=== PATIENT | female | born 1940 | race African-American/Black ===

== ENCOUNTER 2018-06-07 16:09 | Inpatient (IN) | payer OTHER ==
[~2018-06-07] VITALS: Ht 163.8 cm; Wt 62.3 kg
[2018-06-07 19:15] LABS: BASOPHIL % 0.4 % (0-2); PLATELET COUNT 198 x10^3mcL (130-400); RED CELL DISTRIBUTION WIDTH 12.9 % (11.5-14.5)
[2018-06-07 19:21] LABS: CALCIUM 8.8 mg/dL (8.5-10.1); CHLORIDE SERUM 101 mmol/L (98-107); CREATININE SERUM 1.2 mg/dL (0.6-1.0); GLUCOSE SERUM 285 mg/dL (74-106); POTASSIUM SERUM 4.3 mmol/L (3.5-5.1); SODIUM SERUM 140 mmol/L (136-145)
[2018-06-07 19:26] LABS: ALBUMIN 3.6 g/dL (3.4-5.0); ALKALINE PHOSPHATASE 132 U/L (46-116); ALT/SGPT 17 U/L (14-59); AST/SGOT 19 U/L (15-37); BILIRUBIN TOTAL 0.77 mg/dL (0.20-1.00); TOTAL PROTEIN, SERUM 8.4 g/dL (6.4-8.2)
[2018-06-07 21:05] LABS: PHOSPHOROUS 3.9 mg/dL (2.5-4.9)
[2018-06-07 21:06] LABS: CHOLESTEROL/HDL RATIO 4.9
[2018-06-07] MEDS ORDERED: PANTOPRAZOLE SO40 M1 PO (21:13)
[2018-06-07] MEDS ORDERED: LOSARTAN POTASS25 M1 PO (21:13)
[2018-06-07] MEDS ORDERED: FUROSEMIDE20 MG PO (21:14)
[2018-06-07] MEDS ORDERED: GABAPENTIN300 M4 PO (21:14)
[2018-06-07] MEDS ORDERED: TOPROL XL25 MG PO (21:14)
[2018-06-07] MEDS ORDERED: LOSARTAN POTASS50 M1 PO (21:14)
[2018-06-07] MEDS ORDERED: ATORVASTATIN CA40 M1 PO (21:15)
[2018-06-07] MEDS ORDERED: LOPERAMIDE HCL2 MG PO (21:15)
[2018-06-07 21:48] VITALS: BP 181/97
[2018-06-07 21:56] VITALS: Ht 163.8 cm; Wt 62.3 kg
[2018-06-08 05:27] VITALS: BP 155/65
[2018-06-08 08:10] LABS: CALCIUM 8.8 mg/dL (8.5-10.1); CARBON DIOXIDE 27.1 mmol/L (21-32); CHLORIDE SERUM 102 mmol/L (98-107); GLUCOSE SERUM 180 mg/dL (74-106); POTASSIUM SERUM 3.6 mmol/L (3.5-5.1); SODIUM SERUM 142 mmol/L (136-145)
[2018-06-08 08:49] LABS: BASOPHIL % 0.8 % (0-2); PLATELET COUNT 131 x10^3mcL (130-400)
[2018-06-08 09:24] VITALS: BP 181/65
[2018-06-08 13:36] VITALS: BP 178/79
[2018-06-08 13:49] LABS: microscopic required? YES; urine erythrocyte 1+ (NEGATIVE)
[2018-06-08 15:25] LABS: AMPHETAMINE QUAL UR NONE DETECTED (See below)
[2018-06-08 16:50] VITALS: BP 95/71
[2018-06-08 20:39] VITALS: BP 128/54
[2018-06-09 05:00] VITALS: BP 159/55
[2018-06-09 06:50] LABS: PLATELET COUNT 145 x10^3mcL (130-400); RED CELL DISTRIBUTION WIDTH 12.6 % (11.5-14.5)
[2018-06-09 06:54] LABS: BASOPHIL % 0 % (0-2)
[2018-06-09 08:21] LABS: CALCIUM 8.8 mg/dL (8.5-10.1); CARBON DIOXIDE 18.5 mmol/L (21-32); CHLORIDE SERUM 102 mmol/L (98-107); CREATININE SERUM 1.3 mg/dL (0.6-1.0); GLUCOSE SERUM 189 mg/dL (74-106); MAGNESIUM 1.9 mg/dL (1.8-2.4); PHOSPHOROUS 4.8 mg/dL (2.5-4.9); POTASSIUM SERUM 3.7 mmol/L (3.5-5.1); SODIUM SERUM 141 mmol/L (136-145)
[2018-06-09 10:05] VITALS: BP 120/48
[2018-06-09 13:10] VITALS: BP 142/77
[2018-06-09 17:50] VITALS: BP 147/65
[2018-06-09 21:23] VITALS: BP 134/74
[2018-06-10 05:19] VITALS: BP 109/50
[2018-06-10 10:05] VITALS: BP 116/54
[2018-06-10] MEDS ORDERED: ARI5 PO (13:01)
[2018-06-10 14:27] VITALS: BP 116/54
[2018-06-10 15:13] VITALS: BP 114/53
[2018-06-10 17:32] VITALS: BP 117/51
== END 2018-06-10 18:40 | disposition home or self-care (01) | DRG 391 ==
LOC: ED 16:09 → DU 19:58
PROVIDERS: Emergency Medicine; Internal Medicine Gastroenterology; ADMIT Internal Medicine
PROC: 0DB68ZX Excision of Stomach, Via Natural or Artificial Opening Endoscopic, Diagnostic (ICD-10-PCS; principal; 2018-06-09 08:30)
PROC: 0D5F8ZZ Destruction of Right Large Intestine, Via Natural or Artificial Opening Endoscopic (ICD-10-PCS; 2018-06-09 08:30)
DX: K21.0 Gastro-esophageal reflux disease with esophagitis (principal); N17.0 Acute kidney failure with tubular necrosis; D68.69 Other thrombophilia; I11.0 Hypertensive heart disease with heart failure; I50.9 Heart failure, unspecified; K44.9 Diaphragmatic hernia without obstruction or gangrene; Q27.33 Arteriovenous malformation of digestive system vessel; G90.9 Disorder of the autonomic nervous system, unspecified; M19.90 Unspecified osteoarthritis, unspecified site; M06.9 Rheumatoid arthritis, unspecified; E11.42 Type 2 diabetes mellitus with diabetic polyneuropathy; E11.65 Type 2 diabetes mellitus with hyperglycemia; E78.5 Hyperlipidemia, unspecified; G30.9 Alzheimer's disease, unspecified; F02.80 Dementia in other diseases classified elsewhere, unspecified severity, without behavioral disturbance, psychotic disturbance, mood disturbance, and anxiety; I25.2 Old myocardial infarction; Z95.0 Presence of cardiac pacemaker; Z86.73 Personal history of transient ischemic attack (TIA), and cerebral infarction without residual deficits; Z91.011 Allergy to milk products; Z91.018 Allergy to other foods; Z68.23 Body mass index [BMI] 23.0-23.9, adult
CPT/HCPCS: 43235; 45378; 82962; 83880; 90732; C9113; J1200; J1610; J1815; J2250; J2310; J2405; J2550; J2765; J3010; J3490; J7030; Q0092; Q9967

== ENCOUNTER 2018-06-18 17:37 | Emergency (ER) | payer OTHER ==
[~2018-06-18] VITALS: Ht 162.6 cm; Wt 61.7 kg
[~2018-06-18 17:37] MED LIST: ARI5 PO; ATORVASTATIN CA40 M1 PO; FUROSEMIDE20 MG PO; GABAPENTIN300 M4 PO; LOPERAMIDE HCL2 MG PO; LOSARTAN POTASS25 M1 PO; LOSARTAN POTASS50 M1 PO; PANTOPRAZOLE SO40 M1 PO; TOPROL XL25 MG PO
[2018-06-18 17:40] VITALS: Ht 162.6 cm; Wt 61.7 kg
[2018-06-18 18:34] LABS: CALCIUM 8.7 mg/dL (8.5-10.1); CARBON DIOXIDE 29.4 mmol/L (21-32); CHLORIDE SERUM 105 mmol/L (98-107); CREATININE SERUM 1.4 mg/dL (0.6-1.0); GLUCOSE SERUM 116 mg/dL (74-106); POTASSIUM SERUM 3.7 mmol/L (3.5-5.1); SODIUM SERUM 143 mmol/L (136-145)
[2018-06-18 19:21] VITALS: BP 162/86
== END 2018-06-18 19:59 | disposition home or self-care (01) ==
LOC: ED 17:37
PROVIDERS: Emergency Medicine
DX: E11.649 Type 2 diabetes mellitus with hypoglycemia without coma (principal); I50.9 Heart failure, unspecified; I11.0 Hypertensive heart disease with heart failure; Z95.0 Presence of cardiac pacemaker; Z91.011 Allergy to milk products; Z91.013 Allergy to seafood
CPT/HCPCS: 36415; 82962

== ENCOUNTER 2018-07-19 11:46 | Inpatient (IN) | payer OTHER, MEDICAID ==
[~2018-07-19] VITALS: Ht 163.8 cm; Wt 59.7 kg
--- NOTE | 2018-07-19 12:04 | NUR ---
Patient received AAOX4 via ALS from [facility]. Per report, patient was walking in the store, felt dizzy and started to sit herself slowly on the ground. PAtient denies any pain upon arrival. [id number] upon arrival. EKG in progress. Patient changed in a gown and placed on continous cardiac monitoring.
[2018-07-19 12:16] LABS: BASOPHIL % 0.4 % (0-2); PLATELET COUNT 218 x10^3mcL (130-400); RED CELL DISTRIBUTION WIDTH 13.6 % (11.5-14.5)
[2018-07-19 12:25] LABS: CALCIUM 8.6 mg/dL (8.5-10.1); CARBON DIOXIDE 27.8 mmol/L (21-32); CHLORIDE SERUM 100 mmol/L (98-107); CREATININE SERUM 1.5 mg/dL (0.6-1.0); GLUCOSE SERUM 190 mg/dL (74-106); POTASSIUM SERUM 3.6 mmol/L (3.5-5.1); SODIUM SERUM 139 mmol/L (136-145)
[2018-07-19 12:30] LABS: ALBUMIN 3.8 g/dL (3.4-5.0); ALKALINE PHOSPHATASE 115 U/L (46-116); ALT/SGPT 25 U/L (14-59); AST/SGOT 22 U/L (15-37); BILIRUBIN TOTAL 0.85 mg/dL (0.20-1.00); CHOLESTEROL 187 mg/dL (<200); LIPASE 38 IU/L (73-393); TRIGLYCERIDES 169 mg/dL (<150)
[2018-07-19 12:31] LABS: HDL CHOLESTEROL 62 mg/dL (40-60); TOTAL PROTEIN, SERUM 9.2 g/dL (6.4-8.2)
--- NOTE | 2018-07-19 12:35 | NUR ---
PORTABLE X-RAY AT THE BEDSIDE.
[2018-07-19 12:36] LABS: FREE T4 1.16 ng/dL (0.76-1.46); FREE THYROXINE INDEX 3.3 ug/dL (1.4-4.5); T4(THYROXINE) 8.9 ug/dL (4.7-13.3)
[2018-07-19 12:38] LABS: T3 TOTAL 1.06 ng/mL
--- NOTE | 2018-07-19 12:46 | NUR ---
Patient remains AAOx4. Patient has been updated regarding her plan of care. LABS and X-ray pending. IV NS bolus continous at this time. Warm blankets provided to the patient. Cardiac monitoring continous.
--- NOTE | 2018-07-19 13:10 | NUR ---
DR. ULRICH AT THE BEDSIDE FOR PATIENT RE-EVALUATION.
--- NOTE | 2018-07-19 14:08 | NUR ---
PATIENT ASSISTED WITH BEDPAN. UA SPECIMEN OBTAINED AND SENT TO LAB. PATIENT HAS BEEN AWARE OF HER PENDING ADMISSION. PENDING FOR TELE BED PLACEMENT. PATIENT REMAINS PAIN FREE.
[2018-07-19 14:13] LABS: microscopic required? NO
[2018-07-19 14:24] LABS: urine erythrocyte NEGATIVE (NEGATIVE)
[2018-07-19 14:28] LABS: MAGNESIUM 1.3 mg/dL (1.8-2.4); PHOSPHOROUS 4.1 mg/dL (2.5-4.9)
--- NOTE | 2018-07-19 14:47 | NUR ---
PATIENT TO CT FOR HEAD CT W/O CONTRAST. WANDA BERRIOS AT THE BEDSIDE. ATTEMPTED TO ESTABLISH AN IV WITH NO SUCCESS. DR. ULRICH, ER MD, HAS BEEN NOTIFIED. "OK" TO SEND THE PT TO FLOOR W/O IV. ADMITTING MD WILL BE NOTIFIED.
--- NOTE | 2018-07-19 15:20 | NUR ---
RECEIVED PT FROM ED VIA [facility], CAME IN DUE TO DIZZINESS AND NEAR SYNCOPE. AAOX4. C/O DIZZINESS WHEN STANDING UP. ABLE TO FOLLOW COMMANDS. NO FACIAL DROOP/ARM DRIFT. NO SOB NOTED, LUNG SOUNDS CTA. DENIES CHEST PAIN/PRESSURE, 100% PACED. DENIES ABDOMINAL DISCOMFORT. BOWEL SOUNDS ACTIVE. NEW IV SITE WAS INSERTED ON THE LEFT HAND, GAUGE 24, W/ GOOD BLOOD RETURN. SIDE RAILS UPX2. CALL LIGHT ON REACH. ENDORSED TO PRIMARY NURSE ELI FOR CONTINUITY OF CARE
[2018-07-19 15:50] VITALS: BP 132/79
[2018-07-19 15:56] VITALS: Ht 163.8 cm; Wt 59.7 kg
[2018-07-19 17:07] VITALS: BP 138/73
--- NOTE | 2018-07-19 18:14 | NUR ---
PT SITTING UP IN BED EATING DINNER. NO ACUTE DISTRESS. DENIES DIZZINESS AT THIS TIME. AAOX4. RESP EVEN AND UNLABORED ON RA. IVF INFUSING, NO REDNESS OR SWELLING. FALL PRECAUTIONS IN PLACE. BED IN LOW POSITION, CALL LIGHT WITHIN REACH. WILL ENDORSE TO ONCOMING SHIFT.
--- NOTE | 2018-07-19 19:15 | NUR ---
RECEIVED PT FROM PREVIOUS SHIFT NURSE. PT AOX4, C/O DIZZINESS UPON STANDING. TELE #15, 100% PACED. DENIES CP/PRESSURE. PULSES PALPABLE, NO EDEMA NOTED. LUNG SOUNDS CLEAR, ON RA. DENIES SOB/DIFFICULTY BREATHING. BOWEL SOUNDS ACTIVE. VOIDS FREELY. GEN WEAKNESS. AMBULATORY WITH WALKER, WALKER AT BEDSIDE. SKIN INTACT. IV TO L. HAND, INTACT AND PATENT. BED IN LOWEST POSITION. CALL LIGHT WITHIN REACH. WILL CONTINUE TO MONITOR.
[2018-07-19 22:08] VITALS: BP 104/50
--- NOTE | 2018-07-20 03:17 | NUR ---
PT RESTING IN BED. RR EVEN AND UNLABORED. NO ACUTE DISTRESS NOTED. CALL LIGHT WITHIN REACH. BED IN LOWEST POSITION. WILL CONTINUE TO MONITOR.
[2018-07-20 05:38] VITALS: BP 126/54
[2018-07-20 06:16] LABS: BASOPHIL % 0.5 % (0-2); PLATELET COUNT 188 x10^3mcL (130-400); RED CELL DISTRIBUTION WIDTH 13.5 % (11.5-14.5)
[2018-07-20 06:37] LABS: CALCIUM 8.1 mg/dL (8.5-10.1); CARBON DIOXIDE 28.4 mmol/L (21-32); CHLORIDE SERUM 106 mmol/L (98-107); CREATININE SERUM 1.2 mg/dL (0.6-1.0); GLUCOSE SERUM 96 mg/dL (74-106); MAGNESIUM 1.9 mg/dL (1.8-2.4); POTASSIUM SERUM 3.2 mmol/L (3.5-5.1); SODIUM SERUM 143 mmol/L (136-145)
--- NOTE | 2018-07-20 07:22 | NUR ---
REPORT TAKEN FROM ACCOUNT DEVELOPMENT SPECIALIST NURSE AT THE BEDSIDE, PT RESTING AT THIS TIME, CHEST RISE AND FALL OBSERVED, WILL COMPLETE ASSESSEMENT IN CHART.
[2018-07-20 09:00] VITALS: BP 140/70
--- NOTE | 2018-07-20 10:19 | NUR ---
PT RESTING COMFORTABLY AT THIS TIME, MET WITH DOCTORS DURING ROUNDS, AWARE OF PLAN OF CARE, WILL CONTINUE TO MONITOR.
--- NOTE | 2018-07-20 11:57 | NUR ---
PROVIDER PAGED TO MAKE AWARE OF K+ LEVEL OF 3.2, RESPONSE PENDING, PT IS ASYMPTOMATIC AT THIS TIME.
[2018-07-20 12:47] VITALS: BP 140/64
[2018-07-20 17:00] VITALS: BP 135/58
--- NOTE | 2018-07-20 18:22 | NUR ---
PT TOLERATED TREATMENT WELL DURING SHIFT, IN NAD AT THIS TIME, A/O X 3 AT THIS TIME, DENIED DIZZINESS DURING AMBULATION DURING SHIFT. WILL REPORT TO BOATSWAINS MATE NURSE, AND ENDORSE CARE AT SHIFT CHANGE.
--- NOTE | 2018-07-20 19:25 | NUR ---
RECEIVED PT FROM PREVIOUS SHIFT NURSE. PT AOX4, FORGETFUL/CONFUSED. TELE #15. 100% PACED. DENIES CP/PRESSURE. LUNG SOUNDS CLEAR, ON RA. DENIES SOB/DIFFICULTY BREATHING. IV TO L. HAND, INTACT AND PATENT. BED IN LOWEST POSITION. CALL LIGHT WITHIN REACH. WILL CONTINUE TO MONITOR.
[2018-07-20 20:03] VITALS: BP 133/55
--- NOTE | 2018-07-21 02:14 | NUR ---
PT RESTING IN BED. RR EVEN AND UNLABORED. NO ACUTE DISTRESS NOTED. CARE ENDORSED TO WANDA PETERSON.
--- NOTE | 2018-07-21 02:40 | NUR ---
PAGED DR. CLARKE REGARDING K+ 3.2.
[2018-07-21 05:25] VITALS: BP 134/57
--- NOTE | 2018-07-21 06:10 | NUR ---
PT RECONNECTED TO IVF. DENIES PAIN. NO S/S ACUTE DISTRESS. DENIES PAIN. ALL NEEDS MET AND ATTENDED TO. NO SIGNIFICANT EVENTS. IV SITE CDI, FLUSHES WELL, NO ERYTHEMA OR SWELLING. CALL LIGHT WITHIN REACH. WILL ENDORSE TO ONCOMING SHIFT.
[2018-07-21 06:13] LABS: BASOPHIL % 0.4 % (0-2); PLATELET COUNT 184 x10^3mcL (130-400); RED CELL DISTRIBUTION WIDTH 12.7 % (11.5-14.5)
[2018-07-21 06:39] LABS: CALCIUM 7.9 mg/dL (8.5-10.1); CARBON DIOXIDE 27.6 mmol/L (21-32); CHLORIDE SERUM 106 mmol/L (98-107); CREATININE SERUM 0.8 mg/dL (0.6-1.0); GLUCOSE SERUM 104 mg/dL (74-106); POTASSIUM SERUM 3.5 mmol/L (3.5-5.1); SODIUM SERUM 143 mmol/L (136-145)
--- NOTE | 2018-07-21 07:30 | NUR ---
THE PATIENT AWAKE AND ORIENTED TO PERSON, PLACE AND AT THIS TIME. HOWEVER, PATIENT WITH HX OF DEMENTIA. PATIENT DENIED SHORTNESS OF BREATH, NAUSEA/VOMITING, DIZZINESS OR PAIN AT THIS TIME. TELE # 15 READS PACED. PACEMAKER TO LEFT UPPER CHEST. NS AT 50 CC/HR VIA IV SITE TO LEFT HAND. CALL LIGHT WITHIN REACH. SIDE RAILS UP X3. BED WAS AT LOWEST POSITION, AND ALARM WAS ON. WALKER AT BEDSIDE.
[2018-07-21 09:00] VITALS: BP 134/60
[2018-07-21 12:00] VITALS: BP 127/57
[2018-07-21 17:00] VITALS: BP 132/46
--- NOTE | 2018-07-21 18:52 | NUR ---
THE PATIENT WAS RESTING IN BED WITHOUT DISTRESS NOTED. THE PATIENT GOT OUT OF BED AND USED BRP WITH A WALKER. CALL LIGHT WITHIN REACH. SIDE RAILS UP X3. BED WAS AT LOWEST POSITION.
--- NOTE | 2018-07-21 19:30 | NUR ---
RECIEVED PATIENT AT START OF SHIFT AWAKE AND ORIENTED TO TIME PERSON AND PLACE. NO COMPLAINT OF PAIN AND NO SOB ON RA. ON TELE #15, 100% PACED. PULSES ARE MODERATE, NO EDEMA NOTED. PATIENT REPORTED THAT TODAY SHE HAD BLOODY DRAINAGE FROM HER VAGINA. SHE REPORTS SHE HAS BEEN HAVING SPOTTY BLEEDING FOR THE PAST 20 YEARS THAT COMES AND GOES. CURRENT PERINEAL PAD IN PLACE IS DRY WITH NO BLOOD. WILL CONTINUE TO CHECK PAD AND NOTIFY MD. IV IS INTACT, NO ERYTHEMA OR INFILTRATION NOTED. BED ALARM ON, PATIENT AMBULATES WITH WALKER TO BATHROOM. BED LOCKED AND IN LOWEST POSITION, CALL LIGHT AND BEDSIDE TABLE WITHIN REACH. NON-SLIP SOCKS ON. WILL CONINTUE TO MONITOR.
[2018-07-21 20:51] VITALS: BP 120/60
[2018-07-22 05:23] VITALS: BP 122/50
[2018-07-22 06:42] LABS: CALCIUM 7.7 mg/dL (8.5-10.1); CARBON DIOXIDE 30.2 mmol/L (21-32); CHLORIDE SERUM 107 mmol/L (98-107); CREATININE SERUM 0.8 mg/dL (0.6-1.0); GLUCOSE SERUM 108 mg/dL (74-106); POTASSIUM SERUM 3.6 mmol/L (3.5-5.1); SODIUM SERUM 142 mmol/L (136-145)
--- NOTE | 2018-07-22 06:50 | NUR ---
NO ACUTE EVENTS OVERNIGHT. PATIENT REPORTED SLEEPING WELL THROUGHOUT SHIFT. DENIES PAIN. NICKY PLAD IS CLEAN, NO BLOOD. PELVIC ULTRASOUND SCHEDULED TODAY TO INVESTIGATE BLEEDING FROM DAYSHIFT YESTERDAY. WILL ENDORSE CARE TO MORNING NURSE.
[2018-07-22 06:51] LABS: BASOPHIL % 0.4 % (0-2); PLATELET COUNT 176 x10^3mcL (130-400); RED CELL DISTRIBUTION WIDTH 13.2 % (11.5-14.5)
[2018-07-22 09:00] VITALS: BP 152/60
[2018-07-22 13:39] VITALS: BP 122/50
[2018-07-22 14:00] VITALS: BP 141/62
[2018-07-22] MEDS ORDERED: GLU5 PO (14:31)
== END 2018-07-22 15:59 | disposition home or self-care (01) | DRG 640 ==
LOC: ED 11:46 → DU 13:49
PROVIDERS: Specialist; ADMIT Family Medicine
DX: E86.0 Dehydration (principal); N17.0 Acute kidney failure with tubular necrosis; I95.1 Orthostatic hypotension; E11.65 Type 2 diabetes mellitus with hyperglycemia; I11.0 Hypertensive heart disease with heart failure; I50.9 Heart failure, unspecified; F03.90 Unspecified dementia, unspecified severity, without behavioral disturbance, psychotic disturbance, mood disturbance, and anxiety; M06.9 Rheumatoid arthritis, unspecified; M19.90 Unspecified osteoarthritis, unspecified site; E83.42 Hypomagnesemia; E78.5 Hyperlipidemia, unspecified; I25.2 Old myocardial infarction; Z95.0 Presence of cardiac pacemaker; Z86.73 Personal history of transient ischemic attack (TIA), and cerebral infarction without residual deficits; Z68.22 Body mass index [BMI] 22.0-22.9, adult
CPT/HCPCS: 82962; 83880; 84439; J3475; J7030; Q0092

== ENCOUNTER 2018-12-14 12:17 | Emergency (ER) | payer OTHER ==
[~2018-12-14] VITALS: Ht 162.6 cm; Wt 56.7 kg
[~2018-12-14 12:17] MED LIST changes: +GLU5 PO
[2018-12-14 12:49] VITALS: Ht 162.6 cm; Wt 56.7 kg
[2018-12-14 14:59] LABS: CALCIUM 8.4 mg/dL (8.5-10.1); CARBON DIOXIDE 25.7 mmol/L (21-32); CHLORIDE SERUM 106 mmol/L (98-107); GLUCOSE SERUM 251 mg/dL (74-106); POTASSIUM SERUM 4.2 mmol/L (3.5-5.1); SODIUM SERUM 141 mmol/L (136-145)
[2018-12-14 15:07] LABS: ALBUMIN 3.6 g/dL (3.4-5.0); ALKALINE PHOSPHATASE 100 U/L (46-116); ALT/SGPT 14 U/L (14-59); AST/SGOT 16 U/L (15-37); BILIRUBIN TOTAL 0.5 mg/dL (0.20-1.00); TOTAL PROTEIN, SERUM 7.9 g/dL (6.4-8.2)
[2018-12-14 15:08] LABS: BASOPHIL % 0.4 % (0-2); PLATELET COUNT 180 x10^3mcL (130-400); RED CELL DISTRIBUTION WIDTH 13.5 % (11.5-14.5)
[2018-12-14 15:53] LABS: UA SPECIFIC GRAVITY 1.025 (1.005-1.035); microscopic required? YES; urine erythrocyte NEGATIVE (NEGATIVE)
[2018-12-14 17:12] VITALS: BP 145/87
== END 2018-12-14 17:12 | disposition home or self-care (01) ==
LOC: ED 12:17
PROVIDERS: Emergency Medicine
DX: R07.89 Other chest pain (principal); R00.2 Palpitations; R55 Syncope and collapse; E11.22 Type 2 diabetes mellitus with diabetic chronic kidney disease; N18.9 Chronic kidney disease, unspecified; I50.9 Heart failure, unspecified; Z91.013 Allergy to seafood; Z91.011 Allergy to milk products; Z98.890 Other specified postprocedural states
CPT/HCPCS: 36415; Q0092

== ENCOUNTER 2019-01-05 17:57 | Inpatient (IN) | payer OTHER ==
[~2019-01-05] VITALS: Ht 162.6 cm; Wt 57.2 kg
[2019-01-05 18:11] VITALS: Ht 162.6 cm; Wt 57.2 kg
--- NOTE | 2019-01-05 18:17 | NUR ---
PT TO ROOM 11. VIA WHEECHAIR.
--- NOTE | 2019-01-05 18:51 | NUR ---
DR QUIGLEY AT BEDSIDE FOR MSE.
--- NOTE | 2019-01-05 19:08 | NUR ---
PT MEDICATED PER MD ORDERS, PT EDUCATED ON MEDICATION PRIOR TO ADMINISTRATION. PT DENIES ALLERGIES TO MEDICATION, FAMILY AT BEDSIDE.
--- NOTE | 2019-01-05 19:17 | NUR ---
REPORT GIVEN TO DE MUÑOZ TO ASSUME CARE OF PT.
--- NOTE | 2019-01-05 19:28 | NUR ---
PT RESTING IN BED ATTEMPTING TO USE BEDPAN.
[2019-01-05 19:40] LABS: BASOPHIL % 0.3 % (0-2); PLATELET COUNT 192 x10^3mcL (130-400); RED CELL DISTRIBUTION WIDTH 13.2 % (11.5-14.5)
[2019-01-05 19:49] LABS: CALCIUM 8.4 mg/dL (8.5-10.1); CHLORIDE SERUM 102 mmol/L (98-107); CREATININE SERUM 1.1 mg/dL (0.6-1.0); GLUCOSE SERUM 315 mg/dL (74-106); POTASSIUM SERUM 4.3 mmol/L (3.5-5.1); SODIUM SERUM 138 mmol/L (136-145)
[2019-01-05 19:55] LABS: ALBUMIN 3.5 g/dL (3.4-5.0); ALKALINE PHOSPHATASE 95 U/L (46-116); ALT/SGPT 16 U/L (14-59); AST/SGOT 15 U/L (15-37); BILIRUBIN TOTAL 0.3 mg/dL (0.20-1.00); LIPASE 66 IU/L (73-393); TOTAL PROTEIN, SERUM 7.2 g/dL (6.4-8.2)
--- NOTE | 2019-01-05 20:45 | NUR ---
PT OFF OF UNIT TO RADIOLOGY.
--- NOTE | 2019-01-05 21:30 | NUR ---
PT RESTING IN BED WITH NO SIGNS OF DISTRESS AT THIS TIME.
[2019-01-05 21:47] LABS: AMPHETAMINE QUAL UR NONE DETECTED (See below)
--- NOTE | 2019-01-05 22:06 | NUR ---
REPORT GIVEN TO OWEN MUÑOZ.
--- NOTE | 2019-01-05 22:20 | NUR ---
RECEIVED PT VIA [facility] FROM E/D, ACCOMPANIED BY RN AND TRANSPORTER. PT A/A/O X 4, CALM, COOPERATIVE; EPISODES OF FORGETFULNESS; C/O INTERMITTENT DULL H/A 3/10, RELIEVED BY PAIN MEDICATIONS. ON TELE # 20, HR 69, 100% PACED, DENIES CHEST PAIN OR DISCOMFORT AT THIS TIME; HAS 10-YR-OLD PM OF UNKNOWN BRAND/MODEL W/C PT STATES NEEDING A CHANGE OF BATTERY OR DUE FOR CHANGING TO A NEWER MODEL; +DIZZINES. LUNGS DIM BILATERALLY, CHEST RISING EVENLY, R/A, 97%, NO ACUTE RESPIRATORY DISTRESS NOTED. ABD SOFT, FLAT, NON-TENDER, HYPOACTIVE BOWEL SOUNDS X 4 QUADS, LAST BM 01/05/19, FORMED; PT IS EDENTULOUS. VOIDS FREELY, DENIES DYSURIA, STATES SHE HAS EPISODES OF VAGINAL BLEEDING. GENERALIZED WEAKNESS, USES W/C & CANE @ HOME, FALL RISK PROTOCOL IN PLACE. IV SITE LAC 20G, CDI. ORIENTED PT TO ROOM, BED CONTROLS, CALL LIGHT SYSTEM. SIDE RAILS UP X 2, BED IN LOW POSITION. WILL ENDORSE TO WANDA WEAVER.
[2019-01-06 00:02] VITALS: BP 157/61
--- NOTE | 2019-01-06 05:25 | NUR ---
PT APPEARS TO BE SLEEPING COMFORTABLY. SHE IS EASILY AROUSABLE AND REMAINS ORIENTED X4. SHE HAS NO C/O HEADACHE AND DIZZINESS AT THIS TIME. NO EPISODE OF N/V. SHE USES THE BEDPAN. NO BM NOTED. IVF NS INFUSING WELL AT 100 CC/HR VIA LTAC.
[2019-01-06 06:10] VITALS: BP 150/59
--- NOTE | 2019-01-06 08:00 | NUR ---
SHIFT ASSESSMENT DONE. PATIENT ALERT/ORIENTED TO PERSON AND PLACE, CONFUSED WITH DATE AND TIME. FORGETFULNESS. TELE#20, 100% PACED. HR = 74; DENIED CHEST PAIN. NO RESP DISTRESS ON RA. DENIED PAIN NOW. FINISHED 100% OF BREAKFAST. NO N/V. VOID FREELY, DIENIED DYSURIA. IVF OF NS 100CC/HR. IV SITE TO LAC INTACT. GENERAL WEAKNESS. USE CANE AND WALKER AT HOME. NEED ASSIST FOR BRP. WALKER AT BED SIDE. CALL LIGHT IN REACH.
[2019-01-06 09:08] VITALS: BP 140/57
--- NOTE | 2019-01-06 09:45 | NUR ---
WALKED WITH PHYSICAL THERAPIST IN [address].
[2019-01-06 10:43] LABS: microscopic required? NO
[2019-01-06 10:53] LABS: urine erythrocyte NEGATIVE (NEGATIVE)
[2019-01-06 10:59] LABS: BASOPHIL % 0.6 % (0-2); PLATELET COUNT 201 x10^3mcL (130-400); RED CELL DISTRIBUTION WIDTH 13.5 % (11.5-14.5)
[2019-01-06 11:09] LABS: CARBON DIOXIDE 32.4 mmol/L (21-32); CHLORIDE SERUM 105 mmol/L (98-107); GLUCOSE SERUM 148 mg/dL (74-106); PHOSPHOROUS 4.3 mg/dL (2.5-4.9); POTASSIUM SERUM 3.8 mmol/L (3.5-5.1); SODIUM SERUM 141 mmol/L (136-145)
[2019-01-06 11:17] LABS: MAGNESIUM 1.8 mg/dL (1.8-2.4)
[2019-01-06 12:30] VITALS: BP 155/53
--- NOTE | 2019-01-06 15:51 | NUR ---
DR. MONSALVE CAME TO SEE PATIENT. NEW ORDER WRITTEN.
[2019-01-06 16:45] VITALS: BP 122/57
--- NOTE | 2019-01-06 18:33 | NUR ---
CONDITION STABLE. BRP W/ ASSIST X2. NO BM THIS SHIFT. ORDER OF PACEMAKER INTERROGATION RECEIVED. ENDORSED CARE TO NOC NURSE.
--- NOTE | 2019-01-06 19:20 | NUR ---
RECEIVED PT IN BED AWAKE AND TALKING TO FAMILY MEMBERS AT BEDSIDE. SHE IS ORIENTED X3. NO SOB ON ROOM AIR. PT DENIED HAVING DIZZINESS AT THIS TIME. W/ IVF NS AT 100 CC/HR VIA LTAC. CALL LIGHT W/IN REACH.
[2019-01-06] MEDS ORDERED: ASPIR 8181 MG PO (19:27)
[2019-01-06] MEDS ORDERED: SULFASALAZINE500 M1 PO (19:28)
[2019-01-06] MEDS ORDERED: OYSCO 500500 M1 PO (19:29)
[2019-01-06] MEDS ORDERED: NOVI SQ (19:31)
[2019-01-06 22:06] VITALS: BP 137/64
--- NOTE | 2019-01-06 22:45 | NUR ---
CALLED [employer] FOR PACEMAKER INTERROGATION AND SAID SOMEBODY WILL COME TOMORROW MORNING AROUND 0600.
--- NOTE | 2019-01-06 23:24 | NUR ---
PT APPEARS TO BE SLEEPING COMFORTABLY. RESP. EVEN AND UNLABORED.
--- NOTE | 2019-01-07 05:34 | NUR ---
PT SLEPT THROUGH THE NIGHT. SHE IS AWAKE, ALERT AND ORIENTED X3. PT FORGETFUL AT TIMES. SHE HAD NO C/O DIZZINESS. SHE HAD NO C/O PAIN. ALL NEEDS ATTENDED TO. SAFETY MEASURES MAINTAINED.
[2019-01-07 05:54] VITALS: BP 111/68
[2019-01-07 06:44] LABS: BASOPHIL % 0.4 % (0-2); PLATELET COUNT 170 x10^3mcL (130-400); RED CELL DISTRIBUTION WIDTH 13.6 % (11.5-14.5)
[2019-01-07 07:18] LABS: CALCIUM 7.9 mg/dL (8.5-10.1); CARBON DIOXIDE 28.4 mmol/L (21-32); CHLORIDE SERUM 106 mmol/L (98-107); GLUCOSE SERUM 200 mg/dL (74-106); MAGNESIUM 1.6 mg/dL (1.8-2.4); PHOSPHOROUS 4.4 mg/dL (2.5-4.9); SODIUM SERUM 143 mmol/L (136-145)
--- NOTE | 2019-01-07 08:19 | NUR ---
RECEIVED PATIENT FROM WANDA WEAVER. PATIENT SEEN SEATED UP IN BED, EATING AND TOLERATING BREAKFAST. ALSO SEEN AMBULATING W WALKER TO BR. NO COMPLAINTS AT THIS TIME. NETWORK SERVICES PROJECT MANAGER MEAGAN RENEE TO SPEAK WITH PATIENT, STATES WE WILL WAIT FOR PATIENT TO HAVE PACEMAKER INTERROGATED WELL EVAL FROM DR MONSALVE CARDIOLOGY. PATIENT VERBALIZES UNDERSTANDING AND AGREES. CALL LIGHT IN REACH AT THIS TIME.
--- NOTE | 2019-01-07 08:30 | NUR ---
[employer] CALLED AND SPOKE WITH ENGINEER [employer] TO SEND OUT FOR PACEMAKER INTERROGATION. WILL AWAIT FOR PACEMAKER ENGINEER [employer] TO ARRIVE.
[2019-01-07 09:19] VITALS: BP 138/79
--- NOTE | 2019-01-07 10:44 | NUR ---
[facility] [employer] REP VALDEZ IN TO INTERROGATE PACEMAKER. REPORT PRINTED AND PLACED IN CHART FOR DR GRICEL DANIELS. INFORMED SAS DEVELOPER ANALYST MEAGAN AND MADE AWARE.
[2019-01-07 13:16] VITALS: BP 166/47
--- NOTE | 2019-01-07 15:45 | NUR ---
DR MONSALVE SEEN AT NURSES STATION AND SEEN EVALUATING PATIENT CHART AND PACEMAKER REPORT. ASKED PATIENT ABOUT WHAT DR MONSALVE SAID AND PATIENT STATED THAT HE HAD NOT COME IN TO SPEAK TO HER. NO COMPLAINTS AT THIS TIME, WILL LOOK FOR PROGRESS NOTE FROM DR MONSALVE. CALL LIGHT IN REACH.
[2019-01-07 16:56] VITALS: BP 130/61
--- NOTE | 2019-01-07 17:11 | NUR ---
PROGRESS NOTE FROM DR MONSALVE IN SYSTEM. INFORMED PATIENT AND REINFORCED TO PATIENT. NO COMPLAINTS AT THIS TIME. WILL CONTINUE TO MONITOR.
--- NOTE | 2019-01-07 18:22 | NUR ---
PATIENT IN BED, TOLERATING DINNER TRAY. NO COMPLAINTS AT THIS TIME. WILL ENDORSE TO ONCOMING NURSE ABOUT PLAN OF CARE. CALL LIGHT IN REACH.
--- NOTE | 2019-01-07 19:35 | NUR ---
RECEIVED REPORT FROM AM NURSE. PT LAYING DOWN IN BED. ASSISTED PT TO RESTROOM. PT AAOX4, ABLE TO MAKE NEEDS KNOWN. DENIES DUMONT/DIZZINESS. SPEECH CLEAR. NO FACIAL DROOP NOTED. ON TELE#20 100%PACED. DENIES CP/PRESSURE AT THIS TIME. PALPABLE PULSES TO ALL EXTREMETIES. NO EDEMA NOTED. LUNG SOUNDS DIMINISHED. BREATHING EVEN AND UNLABORED ON RA. NO ACUTE DISTRESS NOTED. ABD SOFT AND NONDISTENDE. ACTIVE BS X4 QUAD. DENIES N/V/D. VOIDS FREELY, BRP. AMBULATORY WITH WALKER. IV TO LAC RUNNING NS AT 100ML/HR. SITE WNL. BED AT LOWEST SETTING. SIDE RAILS X4 QUAD. CALL LIGHT WITHING REACH. WILL CONTINUE TO MONITOR.
[2019-01-07 20:55] VITALS: BP 131/50
--- NOTE | 2019-01-08 00:06 | NUR ---
PT LAYING DOWN IN BED WITH EYES CLOSED, BREATHING EVEN AND UNLABORED ON RA. NO ACUTE DISTRESS NOTED. NS INFUSING TO LAC AT 100ML/HR. BED AT LOWEST SETTING. SIDE RAILS X2 UP. CALL LIGHT WITHING REACH. WILL CONTINUE TO MONITOR.
[2019-01-08 05:45] VITALS: BP 157/63
--- NOTE | 2019-01-08 06:09 | NUR ---
PT SLEPT AT INTERVALS THROUGHOUT THE NIGHT, BREATHING EVEN AND UNLABORED ON RA. NO SIGNIFICANT CHANGES DURING THE SHIFT. ALL NEEDS ASSESSED AND ATTENDED TO. NO ACUTE DISTRESS NOTED. IV TO LAC INFUSING NS AT 100ML/HR, SITE WNL. BED AT LOWEST SETTING. SIDE RAILS X2 UP. CALL LIGHT WITHING REACH. WILL ENDORSE CARE TO AM NURSE.
[2019-01-08 06:42] LABS: BASOPHIL % 0.4 % (0-2); PLATELET COUNT 173 x10^3mcL (130-400); RED CELL DISTRIBUTION WIDTH 13.6 % (11.5-14.5)
[2019-01-08 06:44] LABS: CALCIUM 7.7 mg/dL (8.5-10.1); CHLORIDE SERUM 107 mmol/L (98-107); CREATININE SERUM 0.8 mg/dL (0.6-1.0); GLUCOSE SERUM 218 mg/dL (74-106); POTASSIUM SERUM 4.3 mmol/L (3.5-5.1); SODIUM SERUM 139 mmol/L (136-145)
--- NOTE | 2019-01-08 07:51 | NUR ---
RECEIVED PATIENT FROM WANDA WEAVER. PATIENT IN BED AT THIS TIME, NO COMPLAINTS OF PAIN OR DIZZINESS. INFORMED PATIENT ABOUT PLAN OF CARE FOR TODAY AND PATIENT AGREES. WILL AWAIT EMA RHODES AND DR MONSALVE CARDIOLOGY TO COME SPEAK W PATIENT TODAY. CALL LIGHT IN REACH.
[2019-01-08 09:28] VITALS: BP 151/50
[2019-01-08 12:15] VITALS: BP 154/60
[2019-01-08 16:40] VITALS: BP 160/63
--- NOTE | 2019-01-08 17:46 | NUR ---
DR MONSALVE IN TO SPEAK WITH PATIENT ABOUT PACEMAKER GENERATOR CHANGE. WILL MAKE PATIENT NPO FOR BREAKFAST TOMORROW. CONSENT OBTAINED AND PLACED IN CHART. WILL ENDORSE TO ONCOMING NURSE. NO COMPLAINTS AT THIS TIME. CALL LIGHT IN REACH.
--- NOTE | 2019-01-08 19:25 | NUR ---
RECEIVED REPORT FROM AM NURSE. PT LAYING DOWN IN BED. PT AAOX3, CONFUSED ABOUT TIME. REORIENTED PT. PT ABLE TO MAKE NEEDS KNOWN. DENIES DUMONT/DIZZINESS. SPEECH CLEAR. NO FACIAL DROOP NOTED. ON TELE#20 100%PACED. DENIES CP/PRESSURE AT THIS TIME. PALPABLE PULSES TO ALL EXTREMETIES. NO EDEMA NOTED. LUNG SOUNDS DIMINISHED. BREATHING EVEN AND UNLABORED ON RA. NO ACUTE DISTRESS NOTED. ABD SOFT AND NONDISTENDE. ACTIVE BS X4 QUAD. DENIES N/V/D. LAST BM 01/07/19. VOIDS FREELY, BRP. AMBULATORY WITH WALKER. IV TO LW RUNNING NS AT 100ML/HR. SITE WNL. BED AT LOWEST SETTING. SIDE RAILS X4 QUAD. CALL LIGHT WITHING REACH. WILL CONTINUE TO MONITOR.
[2019-01-08 19:55] VITALS: BP 132/53
--- NOTE | 2019-01-09 00:07 | NUR ---
PT LAYING DOWN IN BED WITH EYES CLOSED, BREATHING EVEN AND UNLABORED ON RA. NO ACUTE DISTRESS NOTED. BED AT LOWEST SETTING. SIDE RAILS X2 UP. CALL LIGHT WITHING REACH. WILL CONTINUE TO MONITOR.
[2019-01-09 04:59] VITALS: BP 130/61
--- NOTE | 2019-01-09 05:22 | NUR ---
PT SLEPT AT INTERVALS THROUGHOUT THE NIGHT, BREATHING EVEN AND UNLABORED ON RA. CLOREHEXIDINE WIPES PROVIDED TO PREP FOR PROCEDURE THIS AM. PT KEPT NPO SINCE MIDNIGHT. NO SIGNIFICANT CHANGES DURING THE NIGHT. ALL NEEDS ASSESSED AND ATTENDED TO. IV TO LW INFUSING NS AT 100ML/HR. SITE WNL. BED AT LOWEST SETTING. SIDE RAILS X2 UP. CALL LIGHT WITHING REACH. WILL ENDORSE CARE TO AM NURSE.
[2019-01-09 06:26] LABS: CALCIUM 7.9 mg/dL (8.5-10.1); CARBON DIOXIDE 22.4 mmol/L (21-32); CHLORIDE SERUM 108 mmol/L (98-107); CREATININE SERUM 0.8 mg/dL (0.6-1.0); GLUCOSE SERUM 174 mg/dL (74-106); SODIUM SERUM 139 mmol/L (136-145)
[2019-01-09 07:45] LABS: BASOPHIL % 0.5 % (0-2); PLATELET COUNT 170 x10^3mcL (130-400); RED CELL DISTRIBUTION WIDTH 13.6 % (11.5-14.5)
--- NOTE | 2019-01-09 08:00 | NUR ---
SHIFT ASSESSMENT DONE. PATIENT ALERT, BUT FORGETFULNESS. HX OF DEMENTIA. DEFIBRILLATOR TO LT UPPER JOANNA WALL. TELE#20; 100% PACED. HR = 65. DENIED CHEST PAIN NOW. NO RESP DISTRESS ON RA. O2 SAT 98%. NPO FOR DEFIBRILLATOR REPLACEMENT THIS AM. DR. FENTON SAW PATIENT AND TALKED TO PATIENT'S DAUGHTER ON THE PHONE. CONSENT SIGNED. IVF OF NS 100CC/HR INFUSION WELL. IV SITE TO L WRIST INTACT. GENERAL WEAKNESS. WALKER AND BSC IN PLACE. CALL LIGHT IN REACH.
[2019-01-09 08:43] VITALS: BP 164/64
--- NOTE | 2019-01-09 09:07 | NUR ---
patient went laboratory phlebotomist.
--- NOTE | 2019-01-09 09:15 | NUR ---
RECEIVED PT TO OPS FROM [facility] VIA BED FOR PACEMAKER PROCEDURE. PT AWAKE AND ALERT TO PERSON, . CONFUSED TO DATE AND TIME. REORIENTED. SPEECH CLEAR. ARMBAND IDENTIFIED FOR PROCEDURE. FOLLOWS COMMANDS. NKA. CONSENT ON CHART FOR PROCEDURE. PACEMAKER NOTED LEFT UPPER CHEST. CONNECTED TO OPS LACQUER SHADER SHOWS 100% PACED RATE 132. RESP 18 EVEN. PULSE OX 100% ON RA. DENIES PAIN OR SOB. NPO SINCE MIDNIGHT. DARIAN COMPLETED 05 THIS AM. CHECKLIST COMPLETED. PT HAS #24 ANGIO SALINE LOCK LEFT INNER WRIST. SHANE MUÑOZ HUB BANDER NURSE HERE ATTEMTPING TO INSERT ADDITIONAL IV ACCESS. VEIN FINDER IN USE. ABLE TO INSERT #20 ANGIO TO LAC FOR SALINE LOCK. WILL CONTINUE TO MONITOR.
--- NOTE | 2019-01-09 09:35 | NUR ---
PT TAKEN TO GAME MANAGER VIA BED AT THIS TIME.
--- NOTE | 2019-01-09 14:05 | NUR ---
RECEIVED PATIENT FROM RECOVERY ROOM. PATIENT ALERT/ORIENTED. DRSG TO LT UPPER CHEST D/C/I. DENIED PAIN NOW. V/S= 97.3-62-16- 180/71; O2 SAT 100% ON RA. DENIED PAIN. IVHL'D TO LW. NEW IV TO LAC, INTACT. B/S = 179. PATIENT NPO NOW. INSURAN HOLD AND MONITOR. CALL LIGHT IN REACH.
[2019-01-09 14:24] VITALS: BP 180/71
[2019-01-09 17:27] VITALS: BP 146/57
--- NOTE | 2019-01-09 18:31 | NUR ---
NOT TOLERATED DINNER. NAUSEA AND VOMITING X1; 300CC OF LIQUIED DORM VOMITUS NOTED. ZOFRAN 4MG IVP GIVEN. ENDORSED CARE TO [facility] NURSE.
--- NOTE | 2019-01-09 18:42 | NUR ---
NO N/V NOW. PRESSURE DRSG TO L UPPER CHEST D/C/I. DENIED PAIN. VOID VIA BED CARIAS. IVF OF NS 100CC/HR TO L WRIST. IVHL'D TO LAC.
--- NOTE | 2019-01-09 20:23 | NUR ---
Awake and verbally responsive. No respiratory distress noted on room air. Denies pain. Denies n/v. Left upper chest surgical site with dressing intact. Family visiting. Will cont.to monitor. Call light within reach.
[2019-01-09 21:04] VITALS: BP 154/64
--- NOTE | 2019-01-10 04:11 | NUR ---
Afebrile. No significant change in condition noted. Denies pain. Left upper chest dressing intact. No bleeding noted. 100%paced rhythm. cont.on IV ancef.
[2019-01-10 06:44] VITALS: BP 127/49
[2019-01-10 06:44] LABS: CALCIUM 7.9 mg/dL (8.5-10.1); CARBON DIOXIDE 25.8 mmol/L (21-32); CHLORIDE SERUM 107 mmol/L (98-107); CREATININE SERUM 0.8 mg/dL (0.6-1.0); GLUCOSE SERUM 114 mg/dL (74-106); POTASSIUM SERUM 4.1 mmol/L (3.5-5.1); SODIUM SERUM 140 mmol/L (136-145)
--- NOTE | 2019-01-10 07:10 | NUR ---
RECIEVED PT RESTING IN BED COMFORTABLY WITH NO C/O PAIN OR DISTRESS. A/O X3 FORGETFUL. NO C/O DUMONT OR DISTRESS. TELE #20 CONNECTED TO PT AND DENIES ANY CP OR PRESSURE. PACED DEVICE IN PLACE. NS 100ML/HR RUNNING IN LAC, INTACT AND PATENT WITH NO REDNESS OR INFLAMMATION NOTED. SAFETY PRECAUTIONS IN PLACE, CALL LIGHT WITHIN REACH, WILL MONITOR.
[2019-01-10 07:15] LABS: BASOPHIL % 0.3 % (0-2); PLATELET COUNT 169 x10^3mcL (130-400); RED CELL DISTRIBUTION WIDTH 13.5 % (11.5-14.5)
[2019-01-10 07:56] VITALS: BP 146/97
--- NOTE | 2019-01-10 10:00 | NUR ---
PT STABLE WITH NO C/O PAIN OR DISTRESS. SAFETY PRECAUTIONS IN PLACE, CALL LIGHT WITHIN REACH, WILL MONITOR.
[2019-01-10 12:35] VITALS: BP 149/64
[2019-01-10 16:31] VITALS: BP 143/64
--- NOTE | 2019-01-10 18:00 | NUR ---
PT STABLE AT THIS TIME WITH NO C/O PAIN OR DISTRESS. ALL CARES TOLERATED WELL. A/O X3 FORGETFUL AT TIMES. TELE#20 CONNECTED TO PT, DENIES CP OR PRESSURE. NS 100ML/HR RUNNING IN LAC, INTACT AND PATENT WITH NO REDNESS OR INFLAMMATION. SAFETY PREACUTIONS IN PLACE, CALL LIGHT WITHIN REACH, WILL ENDORSE TO NIGHT NURSE.
--- NOTE | 2019-01-10 19:25 | NUR ---
RECEIVED PT IN BED AWAKE, ALERT,ORIENTED X3. SHE HAS NO C/O HEADACHE AND DIZZINESS. W/ DRESSING TO LT CHEST CDI. SHE HAS NO C/O CHEST PAIN. NO SOB ON ROOM AIR. IV SITE TO LT ARM NOTED SWOLLEN. CALL LIGHT W/IN REACH.
[2019-01-10 21:01] VITALS: BP 126/87
--- NOTE | 2019-01-10 21:18 | NUR ---
INFORMED DR. GARVIN THAT PT REFUSED IV REINSERTION SAYING THAT SHE WILL GO HOME TOMORROW.
--- NOTE | 2019-01-11 02:08 | NUR ---
PT APPEARS TO BE SLEEPING COMFORTABLY. NO C/O PAIN OR DISCOMFORT.
--- NOTE | 2019-01-11 05:07 | NUR ---
PT SLEPT THROUGH THE NIGHT. SHE REMAINS ALERT AND ORIENTED X3 BUT FORGETFUL AT TIMES. SHE HAD NO C/O HEADACHE AND DIZZINESS. NO C/O CHEST PAIN. DRESSING TO LT CHEST WALL CDI. PT REFUSED IV REINSERTION. ALL NEEDS ATTENDED TO. SAFETY MEASURES MAINTAINED.
[2019-01-11 05:33] VITALS: BP 150/58
--- NOTE | 2019-01-11 08:00 | NUR ---
SHIFT ASSESSMENT DONE. PATIENT A/A/0X2; CLEAR SPEECH, BUT FORGETFUL. HX OF DEMENTIA. TELE#20; PACED 100%; HR = 64. DENIED CHEST PAIN. SX DRSG TO LT UPPER CHEST WALL C/D/I. NO RESP DSITRESS ON RA. O2 SAT 99%. TOLERATED CARDIAC DIET BREAKFAST. NO N/V. STATED HAD BM YESTERDAY. NO IV ACCESS. PATIENT REFUSED IV INSERTION GIVEN. EMA RHODES, NOTIFIED. PATIENT WOULD BE DISCHARGE TO HOME TODAY. BSC IN PLACE AND WALKER AT BED SIDE. CALL LIGHT IN REACH.
[2019-01-11 09:11] VITALS: BP 139/67
[2019-01-11] MEDS ORDERED: KEFLEX500 M1 PO (09:51)
[2019-01-11 11:43] VITALS: BP 146/61
--- NOTE | 2019-01-11 14:20 | NUR ---
CONDITION STABLE. D/C TO HOME PER ORDER. INSTRUCTION GIVEN TO PATIENT'S SON-IN-LAW, MR. BAI. ALL PAPER SIGNED BY Isela BHUMIKA. NO IV ACCESS.
== END 2019-01-11 14:20 | disposition home or self-care (01) | DRG 245 ==
LOC: ED 17:57 → DU 20:27
PROVIDERS: Emergency Medicine; Family Medicine; Internal Medicine Cardiovascular Disease; ADMIT Internal Medicine
PROC: 0JH609Z Insertion of Cardiac Resynchronization Defibrillator Pulse Generator into Chest Subcutaneous Tissue and Fascia, Open Approach (ICD-10-PCS; 2019-01-09)
PROC: 0JPT0PZ Removal of Cardiac Rhythm Related Device from Trunk Subcutaneous Tissue and Fascia, Open Approach (ICD-10-PCS; principal; 2019-01-09 10:00)
DX: T82.191A Other mechanical complication of cardiac pulse generator (battery), initial encounter (principal); N17.0 Acute kidney failure with tubular necrosis; I50.32 Chronic diastolic (congestive) heart failure; I11.0 Hypertensive heart disease with heart failure; G90.8 Other disorders of autonomic nervous system; E11.65 Type 2 diabetes mellitus with hyperglycemia; E86.0 Dehydration; D63.8 Anemia in other chronic diseases classified elsewhere; E78.5 Hyperlipidemia, unspecified; G30.9 Alzheimer's disease, unspecified; F02.80 Dementia in other diseases classified elsewhere, unspecified severity, without behavioral disturbance, psychotic disturbance, mood disturbance, and anxiety; Z68.21 Body mass index [BMI] 21.0-21.9, adult; Z86.73 Personal history of transient ischemic attack (TIA), and cerebral infarction without residual deficits; Z79.84 Long term (current) use of oral hypoglycemic drugs
CPT/HCPCS: 82962; 83880; 90658; 90732; 97116-GP; C1721; G0378; J0690; J2001; J2250; J2405; J3010; J3475; J7030; Q0092

== ENCOUNTER 2019-03-09 19:04 | Emergency (ER) | payer OTHER ==
[~2019-03-09] VITALS: Ht 162.6 cm; Wt 54.4 kg
[~2019-03-09 19:04] MED LIST changes: +ASPIR 8181 MG PO; +KEFLEX500 M1 PO; +NOVI SQ; +OYSCO 500500 M1 PO; +SULFASALAZINE500 M1 PO
[2019-03-09 19:22] VITALS: Ht 162.6 cm; Wt 54.4 kg
[2019-03-09 21:19] LABS: BASOPHIL % 1.1 % (0-2); PLATELET COUNT 180 x10^3mcL (130-400); RED CELL DISTRIBUTION WIDTH 14.1 % (11.5-14.5)
[2019-03-09 21:33] LABS: CALCIUM 9.3 mg/dL (8.5-10.1); CARBON DIOXIDE 27.8 mmol/L (21-32); CHLORIDE SERUM 98 mmol/L (98-107); GLUCOSE SERUM 293 mg/dL (74-106); POTASSIUM SERUM 4.3 mmol/L (3.5-5.1); SODIUM SERUM 133 mmol/L (136-145)
[2019-03-09 21:38] LABS: ALBUMIN 3.7 g/dL (3.4-5.0); ALKALINE PHOSPHATASE 88 U/L (46-116); ALT/SGPT 24 U/L (14-59); AST/SGOT 9 U/L (15-37); BILIRUBIN TOTAL 0.28 mg/dL (0.20-1.00); LIPASE 80 IU/L (73-393); TOTAL PROTEIN, SERUM 7.6 g/dL (6.4-8.2)
[2019-03-09 22:54] VITALS: BP 134/63
== END 2019-03-09 22:54 | disposition home or self-care (01) ==
LOC: ED 19:04
PROVIDERS: Emergency Medicine
DX: E86.0 Dehydration (principal); B34.9 Viral infection, unspecified; I11.0 Hypertensive heart disease with heart failure; I50.9 Heart failure, unspecified; E11.9 Type 2 diabetes mellitus without complications; Z95.0 Presence of cardiac pacemaker; Z98.890 Other specified postprocedural states
CPT/HCPCS: J2405; J7030; Q0092